=== PATIENT | male | born 1950 | race Two or more races ===

== ENCOUNTER → 2024-05-13 09:14 | Outpatient (REF) | payer MEDICARE, OTHER, SELFPAY | LOC: HWRCS 09:14 | PROVIDERS: ATTENDING PHYSICIAN Internal Medicine Cardiovascular Disease; FAMILY PHYSICIAN Family Medicine | DX: I25.5 Ischemic cardiomyopathy (principal) | CPT/HCPCS: 93306 ==

== ENCOUNTER → 2024-11-03 10:28 | Outpatient (REF) | payer MEDICARE, OTHER, SELFPAY | LOC: HWRAD 10:28 | PROVIDERS: ATTENDING PHYSICIAN Internal Medicine; FAMILY PHYSICIAN Family Medicine | DX: N17.9 Acute kidney failure, unspecified (principal) | CPT/HCPCS: 76770 ==

== ENCOUNTER 2025-05-12 08:32 | Emergency (ER) | payer MEDICARE, OTHER, SELFPAY ==
[2025-05-12 08:46] VITALS: BP 134/75
[2025-05-12 10:09] VITALS: BMI 24.2
--- NOTE | 2025-05-12 10:09 | ED.GENMED ---
History of Present Illness
General
Chief Complaint: Fall
Source: patient and spouse
Time Seen by Provider: 05/12/25 09:49
History of Present Illness
History of Present Illness:
75-year-old male with past medical history of hypertension, hyperlipidemia, previous KS, [id number] diabetes, previous CVA presenting to the emergency department for evaluation with after he was standing on a chair last night hanging
an object onto a wall when he accidentally fell backwards and landed flat on his back on a hard surface noting 'back pain' but when asked where the pain was patient pointed to his right flank/thoracic region and noted that he was having difficult
time taking a deep breath in secondary to the pain. Patient is on Eliquis due to his cardiac and neurologic history which he reports good compliance with. He denies any head injury, loss of consciousness, headaches or vomiting following the fall.
Patient did take some Tylenol last night but without any relief. He also used an ice pack but states this also did not help. Patient does note some abrasions to the bilateral hands but otherwise no other injuries.
Past History
Past History
ED Past Medical History: CAD, CVA, HTN, Hypercholesterolemia, NIDDM and KS
ED Past Surgical History: Cardiac and Orthopedic
Social History
Tobacco: Non-smoker
Alcohol: None
Drug: None
Personal:
Living: with family
Review of Systems
Review of Systems
All Other Systems: ROS reviewed and negative except as documented in HPI and ROS
Phy Exam
Physical Exam
Physical Exam:
VITAL SIGNS: Vital signs reviewed, cooperative
DISTRESS: No active disease
EYES: Pupils reactive, no orbital trauma
NOSE: No deformity or epistaxis
FACE AND SCALP: No scalp or facial trauma, external canals no blood
NECK: Supple nontender
BACK: Right paralumbar and posterior rib tenderness
RESPIRATORY: No distress, breath sounds normal, right lateral chest wall diffuse tenderness, no flail chest
CARDIAC: No murmur, pulses equal and strong
ABDOMEN: Soft, right upper quadrant tenderness, bowel sounds normal
SKIN: abrasion to the left middle finger and right index finger color normal
EXTREMITIES: Nontender
NEUROLOGICAL: Alert, oriented, no motor deficits
PSYCH: Mood affect normal
Scores
Heart Failure Risk
Heart Failure Risk Score: Not Applicable
Heart Score for Chest Pain Patients
STEMI patient?: Not applicable
Withdrawal Assessment of Alcohol
Withdrawal Assessment Completed?: Not applicable
Course
Orders/Labs/Results
Orders:
Orders
05/12/25 10:01
CT Cervical Spine W/o Iv Contr Urgent
Comment:
Reason For Exam: fall, on eliquis
CT Chest/abd/pel W Iv Cont Urgent
Comment:
Reason For Exam: fall standing on chair, right rib pain, eliquis
CT Head W/o Iv Contrast Urgent
Comment:
Reason For Exam: fall, on eliquis
05/12/25 10:02
Morphine Sulfate 4 mg IV NOW STA
05/12/25 10:16
Complete Blood Count/With Diff Urgent
Comprehensive Metabolic Panel Urgent
PTT Urgent
Prothrombin Time Urgent
Abnormal Lab Results
05/12/25
10:16
RBC 4.04 L 10^6/uL
(4.70-6.10)
Hgb 12.5 L g/dL
(13.0-18.0)
Hct 36.5 L %
(39.0-52.0)
Absolute Monos (auto) 0.9 H 10^3/uL
(0.1-0.6)
Lymphocytes % 20.0 L %
(20.5-51.1)
Monocytes % 10.7 H %
(1.7-9.3)
PT 17.1 H Sec
(11.4-14.6)
APTT 39.0 H Sec
(23.4-35.0)
Sodium 132 L mmol/L
(135-145)
BUN 33 H mg/dl
(9-20)
Glucose 132 H mg/dl
(70-99)
05/12/25 10:16
05/12/25 10:16
Vital Signs
Initial and Last Documented VS:
Initial Vital Signs
Temp Pulse Resp BP Pulse Ox
97.5 F 104 18 134/75 100
05/12/25 08:46 05/12/25 08:46 05/12/25 08:46 05/12/25 08:46 05/12/25 08:46
Last Documented Vital Signs
Temp Pulse Resp BP Pulse Ox
97.5 F 86 21 111/64 100
05/12/25 08:46 05/12/25 12:55 05/12/25 12:55 05/12/25 12:55 05/12/25 12:55
MDM/Problems Addressed
Differential Diagnosis Includes:
Rib fracture
Pneumothorax
Liver laceration
Kidney laceration
Hemothorax
Rib contusion
Intracranial bleeding
Compression fractures
MDM/Problems Addressed:
75-year-old male presenting to the ER for evaluation following a fall from standing position on a chair yesterday evening, patient on Eliquis. No reported head injury but given the significant right-sided rib pain I do have concern for rib fracture
with possibility for distracting injury. Trauma scans ordered. Pain control with morphine. Disposition pending.
Chronic conditions affecting care: CAD and Neurological disorder
*Radiology
Radiology exam reviewed: radiology read reviewed
*Pulse Oximetry
SaO2: 100
Oxygen Mode of Delivery: Room air
Patient hypoxic: no
*Critical Care Note
Total Time (30-74mins, 75-104mins- exclusive of procedures): Not Applicable
Patient Management
Social determinants of health affecting care: Living situation and Strong social support
Escalation/DeEscalation of care consider admission/obs:
Patient's CT of the head and cervical spine came back without any acute pathologies. Chest abdomen and pelvis did show a isolated nondisplaced seventh rib fracture. Patient can continue Tylenol [id number] as needed, avoid NSAIDs due to being
anticoagulated. Incentive spirometer provided. Follow-up with primary care provider as needed. Otherwise stable for discharge home. Wound care discussed.
ED Attending Note
-
Portions of this chart may have been created with voice recognition software.� Occasional wrong word or��sound alike� substitutions may have occurred due to the inherent limitations of voice recognition software.
Discharge Plan
Departure
Patient Disposition: Home (Routine Discharge)
Date of Disposition: 05/12/25
Time of Disposition: 12:44
Patient with high blood pressure during this ER visit?: No
Discharge Problem:
Accidental fall, Fracture of right seventh rib
Instructions: Rib fracture or bruised rib - ED (DC)
Prescriptions:
No Action
atorvastatin 20 MG tablet
20 mg PO HS
glipizide 5 MG tablet extended release 24hr
5 mg PO DAILY
lisinopril-hydrochlorothiazide 1 EACH tablet
1 ea PO DAILY
cceopsng-cqz-uzjmp-vit K-lycop [One-A-Day Men's Multivitamin] 1 EACH tablet
1 ea PO DAILY
aspirin 81 MG tablet,delayed release (DR/EC)
81 mg PO DAILY
zinc 10 MG tablet
1 cap PO DAILY
folic acid 0.8 MG capsule
0.8 mg PO DAILY
glucosamine HCl 1,500 MG tablet
1,500 mg PO DAILY
cyanocobalamin (vitamin B-12) 2,500 MCG tablet
2,500 mcg PO DAILY
carvedilol 6.25 MG tablet
6.25 mg PO BID Qty: 60 5RF
spironolactone 25 MG tablet
25 mg PO DAILY
metformin 1,000 MG tablet
1,000 mg PO BID Qty: 0 0RF
Rx Instructions:
REsume on Karli moseleye 12/22
Referrals:
Ralph Persaud, DO [Family Provider, Family Practice]
Interventions
Interventions:
*Risk Screen - Suicide Last Done: 05/12/25 08:46
*General Assessment Last Done: 05/12/25 08:46
*Neglect/Abuse Screening Last Done: 05/12/25 08:46
*ED- Fall Risk Assessment Last Done: 05/12/25 13:19
*ED COVID-19 Vaccine History Last Done: 05/12/25 10:49
*ED Influenza Vaccine History Last Done: 05/12/25 10:49
*Nursing Disposition Last Done: 05/12/25 13:19
ED-Musculoskeletal Assessment Last Done: 05/12/25 10:53
ED- Neurological Assessment Last Done: 05/12/25 10:52
ED-Skin Assessment Last Done: 05/12/25 10:54
Discharge Date and Time
Discharge Date/Time: 05/12/25 13:30
Print Language: LAO
[2025-05-12] MEDS: MORPHINE SULFATE 4 MG IV (10:15)
[2025-05-12 10:31] LABS: Hematocrit 36.5 % (39.0-52.0); Hemoglobin 12.5 g/dL (13.0-18.0); Mean Corp Hgb Conc. 34.2 g/dL (33.0-37.0); Mean Corpuscular Volume 90.3 fL (80.0-94.0); Nucleated Red Blood Cells % 0 % (-); Platelet Count 172 10^3/uL (130-400); Red Cell Dist. Width 13.2 % (11.5-14.5)
[2025-05-12 10:42] LABS: Albumin 4.4 g/dl (3.5-5.0)
[2025-05-12 10:45] LABS: INR 1.34; PT 17.1 Sec (11.4-14.6)
[2025-05-12 10:46] LABS: APTT 39.0 Sec (23.4-35.0)
[2025-05-12 10:57] LABS: ALT (SGPT) 26 U/L (0-50); AST (SGOT) 29 U/L (17-59); Alkaline Phosphatase 63 U/L (38-126); Blood Urea Nitrogen 33 mg/dl (9-20); Calcium 9.8 mg/dl (8.4-10.2); Carbon Dioxide 22 mmol/L (22-30); Chloride 100 mmol/L (98-107); Estimated Creatinine Clearance 54 ml/min; Glucose 132 mg/dl (70-99); Potassium 4.8 mmol/L (3.5-5.1); Sodium 132 mmol/L (135-145); Total Protein 7.3 g/dl (6.3-8.2); eGFR > 60.00
[2025-05-12 12:55] VITALS: BP 111/64
== END 2025-05-12 13:30 | disposition home or self-care (01) ==
LOC: EMR 08:32
PROVIDERS: Physician Assistant Medical; EMERGENCY PHYSICIAN Emergency Medicine; FAMILY PHYSICIAN Family Medicine
DX: S22.31XA Fracture of one rib, right side, initial encounter for closed fracture (principal); E11.9 Type 2 diabetes mellitus without complications; I25.10 Atherosclerotic heart disease of native coronary artery without angina pectoris; I10 Essential (primary) hypertension; E78.00 Pure hypercholesterolemia, unspecified; I25.2 Old myocardial infarction; Z79.01 Long term (current) use of anticoagulants; Z79.84 Long term (current) use of oral hypoglycemic drugs; Z79.82 Long term (current) use of aspirin; Z86.73 Personal history of transient ischemic attack (TIA), and cerebral infarction without residual deficits; W07.XXXA Fall from chair, initial encounter
CPT/HCPCS: 99284; 96374; 70450; 71260; 72125; 74177; 80053; 85025; 85610; 85730; Q9967

== ENCOUNTER 2025-06-21 09:45 | Day surgery (SDC) | payer MEDICARE, OTHER, SELFPAY ==
[2025-06-21 10:30] LABS: Glucose - Point of Care 118 mg/dl (70-99)
[2025-06-21] MEDS: ELIQUIS 5 MG PO (10:33)
--- NOTE | 2025-06-21 13:32 | ITS.CL.CARDI ---
Continuing Education Director - Cardioversion
Cardioversion
Procedure Report:
Date of Procedure: 06/21/25
Procedure: Cardioversion
Indication: Symptomatic atrial fibrillation
Performing Physician: Reanna Arriaga DO [facility]
[employer] device interrogation before and after cardioversion
Anticoagulation: Eliquis
Makeup Sales Consultant services/[employer]- see consent form
Technique: The patient was brought to the holding area. Signed informed consent was obtained. A time out was called and performed. The patient was anesthetized by the anesthesia service. Anticoagulation status was reviewed and appropriate. R2 pads
were placed anteriorly and posteriorly. A 200 J synchronized biphasic shock restored normal sinus rhythm without significant bradycardia. There were no complications.
Conclusion: Uncomplicated cardioversion from atrial fibrillation to sinus rhythm.
Recommendation: Routine post cardioversion care. Continue long-term anticoagulation.
== END 2025-06-23 11:39 | disposition home or self-care (01) ==
LOC: CATH 09:45
PROVIDERS: ATTENDING PHYSICIAN Internal Medicine Cardiovascular Disease; FAMILY PHYSICIAN Family Medicine; REFERRING PHYSICIAN Internal Medicine Cardiovascular Disease
DX: I48.0 Paroxysmal atrial fibrillation (principal); Z79.01 Long term (current) use of anticoagulants; I25.5 Ischemic cardiomyopathy; Z95.810 Presence of automatic (implantable) cardiac defibrillator; E78.2 Mixed hyperlipidemia; Z79.82 Long term (current) use of aspirin; Z79.84 Long term (current) use of oral hypoglycemic drugs; Z79.899 Other long term (current) drug therapy
CPT/HCPCS: 82962; 92960; 93005

== ENCOUNTER → 2025-07-01 11:00 | Outpatient (REF) | payer MEDICARE, OTHER, SELFPAY | LOC: HWRCS 11:00 | PROVIDERS: ATTENDING PHYSICIAN Internal Medicine Cardiovascular Disease; FAMILY PHYSICIAN Family Medicine | DX: I25.5 Ischemic cardiomyopathy (principal) | CPT/HCPCS: 93306 ==